=== PATIENT | female | born 1945 | race Caucasian/White ===

== ENCOUNTER 2017-10-15 07:44 | Outpatient (CLI) | payer OTHER | END 2017-10-15 08:11 | disposition HB | LOC: LAB 07:44 → NUCLEAR 10-18 09:00 | DX: I10 Essential (primary) hypertension (principal); E11.9 Type 2 diabetes mellitus without complications; E78.2 Mixed hyperlipidemia; E03.8 Other specified hypothyroidism ==

== ENCOUNTER 2017-10-18 07:36 | Outpatient (CLI) | payer OTHER | END 2017-10-18 08:00 | disposition home or self-care (01) | LOC: NUCLEAR 07:36 | DX: K82.8 Other specified diseases of gallbladder (principal) | CPT/HCPCS: 78227; A9537; J2805 ==

== ENCOUNTER → 2017-10-20 | Outpatient (CLI) | payer OTHER | END | disposition home or self-care (01) | LOC: LAB 12:52 | DX: I10 Essential (primary) hypertension (principal); E11.9 Type 2 diabetes mellitus without complications; E78.2 Mixed hyperlipidemia; E03.8 Other specified hypothyroidism ==

== ENCOUNTER → 2017-11-16 07:11 | Outpatient (CLI) | payer OTHER | END | disposition home or self-care (01) | LOC: LAB 07:11 | DX: R19.5 Other fecal abnormalities (principal); R14.3 Flatulence; R10.10 Upper abdominal pain, unspecified ==

== ENCOUNTER 2017-12-27 10:28 | Emergency (ER) | payer OTHER ==
[~2017-12-27] VITALS: Ht 160 cm; Wt 74.4 kg
[2017-12-27] MEDS ORDERED: VERAPAMIL ER240 MG PO (10:33)
[2017-12-27] MEDS ORDERED: TRANDOLAPR-VER1 EACH PO (10:34)
[2017-12-27] MEDS ORDERED: SIMVASTATIN10 MG PO (10:34)
[2017-12-27] MEDS ORDERED: DICLOFENAC POTA50 MG PO (14:44)
== END 2017-12-27 21:21 | disposition home or self-care (01) ==
LOC: ER 10:28
DX: M94.0 Chondrocostal junction syndrome [Tietze] (principal)